=== PATIENT | male | born 1985 | race Caucasian/White ===

== ENCOUNTER 2017-07-29 17:53 | Emergency (ER) | payer SELFPAY ==
[~2017-07-29] VITALS: Ht 177.8 cm; Wt 60.4 kg
[2017-07-29 18:07] VITALS: BP 119/59; PULSE 78; RESP 16; TEMP 99.1; O2SAT 99
--- NOTE | 2017-07-29 18:16 | PD ---
HPI Chief Complaint: Laceration/Skin Injury Time Seen by Provider: 18:16 Travel History International Travel<30 days: No Contact w/Intl Traveler<30days: No Traveled to known affect area: No History of Present Illness HPI 32-year-old male presents to the [facility] workplace injury to the left inner elbow. Patient was working on a electrical pole guidewire, what it came loose and fell causing a laceration to the inner left elbow. Laceration is approximately 9 cm in length and not full-thickness. Patient has no numbness, tingling, or loss of function distally. Pain is 2 out of 10. Patient is unsure of his last tetanus shot. He is allergic to penicillin. [facility] Past Medical History Medical History: Denies Significant Hx Tetanus Vaccination: Unknown Influenza Vaccination: No Past Surgical History Surgical History: No Previous Surgery Social History Alcohol Use: No Tobacco Use: Yes (1 ppd) Substance Use: No Allergies-Medications (Allergen,Severity, Reaction): Coded Allergies: Penicillins (Verified Allergy, Severe, Anaphylaxis, 07/29/17) Reported Meds & Prescriptions Reported Meds & Active Scripts Active No Active Prescriptions or Reported Medications Review of Systems Except as stated in HPI: all other systems reviewed are Neg General / Constitutional: No: Fever Eyes: No: Visual changes HENT: No: Headaches Cardiovascular: No: Chest Pain or Discomfort Respiratory: No: Shortness of Breath Gastrointestinal: No: Abdominal Pain Genitourinary: No: Dysuria Musculoskeletal: No: Pain Skin: No Rash Neurologic: No: Weakness Psychiatric: No: Depression Endocrine: No: Polydipsia Hematologic/Lymphatic: No: Easy Bruising Physical Exam Narrative GENERAL: Patient appears in no acute distress. SKIN: Warm and dry. Patient has fairly linear 9 cm laceration to the lateral inner aspect of the left elbow. It does not appear to be full-thickness. Bleeding is controlled with pressure bandage. HEAD: Atraumatic. Normocephalic. EYES: Pupils equal and round. No scleral icterus. No injection or drainage. ENT: No nasal bleeding or discharge. Mucous membranes pink and moist. Pharynx is clear. Airway is patent. NECK: Trachea midline. Supple and nontender. CARDIOVASCULAR: Regular rate and rhythm. RESPIRATORY: No accessory muscle use. Clear to auscultation. Breath sounds equal bilaterally. MUSCULOSKELETAL: Extremities without clubbing, cyanosis, or edema. No obvious deformities. Patient has normal insurance agency manager strength. Neurovascular exam is normal distal to the wound. Range of motion of the elbow is normal. No other significant findings are noted. NEUROLOGICAL: Awake and alert. No obvious cranial nerve deficits. Motor grossly within normal limits. Five out of 5 muscle strength in the arms and legs. Normal speech. PSYCHIATRIC: Appropriate mood and affect; insight and judgment normal. Data Data Last Documented VS Vital Signs Date Time Temp Pulse Resp B/P (MAP) Pulse Ox O2 Delivery O2 Flow Rate FiO2 07/29/17 18:12 16 07/29/17 18:07 99.1 78 119/59 (79) 99 Orders Orders Tetanus/Diphtheria Tox Adult (Tetanus/Di (07/29/17 18:30) Lidocaine 1% Inj (50 Ml) (Xylocaine 1% I (07/29/17 18:30) MDM Medical Decision Making Medical Screen Exam Complete: Yes Emergency Medical Condition: Yes Differential Diagnosis Workplace injury. Laceration to the left arm. Need for tetanus. Narrative Course Radiographic imaging is not felt warranted based on my history and physical. Tetanus is given IM. Wound is repaired, please see my procedure note. Dressing should remain in place for the next 48 hours. Patient should have wound check in 48 hours Sutures should remain in for 7-10 days. Patient follow-up with his provider in the next week for suture removal, or return to emergency department as needed. Procedures Procedure Narrative LACERATION LOCATION: Left inner elbow LENGTH: 9 cm NUMBER OF STITCHES/REHAN: 3 interrupted vertical mattress, 4 interrupted horizontal mattress REPAIR: The area of the laceration was prepped with Betadine and sterilely draped. The laceration was infiltrated with 5 mL 1% lidocaine without epi. The wound was copiously irrigated and explored without evidence of foreign body , tendon injury or neurovascular injury. The wound was closed using 5-0 Ethilon. This was a single layer repair. A sterile dressing was applied. The patient was advised to keep the dressing clean and dry. Patient is to continue the dressing for the next 2 days. Recommend wound check in 2 days. Patient tolerated the procedure well. Diagnosis Primary Impression: Work related injury Additional Impression: Laceration of left elbow without complication Qualified Codes: S51.012A - Laceration without foreign body of left elbow, initial encounter Patient Instructions: General Instructions, Laceration (ED) Additional Instructions: Radiographic imaging is not felt warranted based on my history and physical. Tetanus is given IM. Wound is repaired, please see my procedure note. Dressing should remain in place for the next 48 hours. Patient should have wound check in 48 hours Sutures should remain in for 7-10 days. Patient follow-up with his provider in the next week for suture removal, or return to emergency department as needed. Med/Other Pt SpecificInfo: No Meds Exist/No RX given Scripts No Active Prescriptions or Reported Meds Disposition: 01 DISCHARGE HOME Condition: Stable Jhonatan Madison Jul 29, 2017 18:16
[2017-07-29] MEDS ORDERED: TETANUS/DIPHTHERIA TOXOID ADULT 0.5 ML VIAL IM ONE (18:30)
[2017-07-29] MEDS ORDERED: LIDOCAINE HCL 1% 50 ML VIAL INFIL ONE (18:30)
== END 2017-07-29 19:42 | disposition home or self-care (01) ==
LOC: PHEFT 17:53
DX: S51.012A Laceration without foreign body of left elbow, initial encounter (principal); W20.8XXA Other cause of strike by thrown, projected or falling object, initial encounter; Y93.89 Activity, other specified; Y99.0 Civilian activity done for income or pay; Z23 Encounter for immunization
CPT/HCPCS: 12004; 90471; 90714